=== PATIENT | male | born 1990 | race Caucasian/White ===

== ENCOUNTER → 2017-04-17 | Day surgery (SDC) | payer BC ==
[2017-04-16 10:59] VITALS: BMI 33.5
[~2017-04-17] MED LIST: LACTATED RINGERS 1,000 ML IV ONE; PROPOFOL 10 MG/ML 20 ML VIAL IV ONE
[2017-04-17 10:50] VITALS: RESP 16; TEMP 98.2
--- NOTE | 2017-04-17 11:16 | P.GSHP ---
History of Present Illness H&P Date: 04/17/17 Chief Complaint: GERD Since 26-year-old male for from Dr. Shade Olguin. Patient rents today for EGD. He's had issues with GERD. Past Medical History Past Medical History: Asthma Additional Past Medical History / Comment(s): Hx asthma, states no symptoms or need for med use in many yrs. History of Any Multi-Drug Resistant Organisms: MRSA Date of last positivie culture/infection: 03/26/17 MDRO Source:: FINGER Additional Past Surgical History / Comment(s): [place] teeth extraction. Past Anesthesia/Blood Transfusion Reactions: No Reported Reaction Past Psychological History: No Psychological Hx Reported Smoking Status: Current some day smoker Past Alcohol Use History: Occasional Additional Past Alcohol Use History / Comment(s): States smokes a cigarette here and there for a few yrs now. Past Drug Use History: None Reported - Past Family History Mother Family Medical History: No Reported History Medications and Allergies Home Medications Medication Instructions Recorded Confirmed Type No Known Home Medications [No 04/16/17 04/17/17 History Known Home Medications] Allergies Allergy/AdvReac Type Severity Reaction Status Date / Time No Known Allergies Allergy Verified 04/17/17 10:46 Surgical - Exam Vital Signs Temp Pulse Resp BP Pulse Ox 98.2 F 81 16 159/81 99 04/17/17 10:49 04/17/17 10:49 04/17/17 10:49 04/17/17 10:49 04/17/17 10:49 - General well developed, no distress - Eyes PERRL - ENT normal pinna - Neck no masses - Respiratory normal expansion - Cardiovascular Rhythm: regular - Abdomen Abdomen: soft, non tender Assessment and Plan Plan: GERD. We'll perform EGD.
--- NOTE | 2017-04-17 11:17 | P.OP ---
Date of Procedure: 04/17/17 Preoperative Diagnosis: GERD Postoperative Diagnosis: Mild antral gastritis Procedure(s) Performed: EGD Implants: Anesthesia: MAC Surgeon: Bhaskar Brock Pathology: other (Antrum) Condition: stable Disposition: PACU Indications for Procedure: Operative Findings: Description of Procedure: The patient's placed on the endoscopy table in the lateral position. IV sedation. The gastroscope placed oropharynx passed in the esophagus and stomach. Scope was then placed through the pylorus. The first and second portion of duodenum appeared normal. Scope was then brought back the antrum and this was mildly inflamed. A biopsies performed. The scope was then retroflexed and the remainder of the stomach appeared normal. There was no evidence of hiatal hernia. The distal esophagus appeared mildly inflamed a biopsy was performed. The proximal esophagus appeared normal. Scope was withdrawn for patient.
[2017-04-17 12:04] VITALS: BP 122/66; PULSE 85
--- NOTE | 2017-04-17 15:10 | NM ---
EXAMINATION TYPE: NM hepatobiliary w EF DATE OF EXAM: 04/17/2017 COMPARISON: NONE INDICATION: TECHNIQUE: After the intravenous administration of 5.25 mCi Tc 99m Mebrofenin hepatobiliary scintigra phy is performed. Images were obtained immediately post injection. FINDINGS: There is prompt uptake and excretion of radiotracer by the liver. Extrahepatic ducts are identified at 8 minutes. The gallbladder is visualized within 8 minutes. Small bowel activity is noted within 8 minutes. At one hour 8 ounces of oral ensure plus is given to mimic CCK and gallbladder ejection fraction is c alculated at 46 %, which is in the normal range. (Normal >35% and <80%.). IMPRESSION: 1. Normal hepatobiliary scan
== END | disposition home or self-care (01) ==
LOC: ORWHC2ENDO 10:11
PROVIDERS: ATTEND Surgery
DX: K29.50 Unspecified chronic gastritis without bleeding (principal); K20.9 Esophagitis, unspecified; Z86.14 Personal history of Methicillin resistant Staphylococcus aureus infection; F17.210 Nicotine dependence, cigarettes, uncomplicated
CPT/HCPCS: 88305; 88342; 78226; 43239; A9537; J2704